=== PATIENT | male | born 1970 | race Caucasian/White ===

== ENCOUNTER 2018-01-02 08:49 | Emergency (ER) | payer MEDICARE ==
[~2018-01-02] VITALS: Ht 177.8 cm; Wt 85.3 kg
[~2018-01-02 08:49] MED LIST: AMLO10TA2 PO; LISI1TAB11 PO; METO25TA6 PO
--- NOTE | 2018-01-02 08:55 | NUR ---
AAOX3, CAME TO ER C/O constipation x 2 days Takes oxycontin 5 mg PO as needed. RR IS EVEN AND UNLABORED WITH NAD NOTED. SKIN IS WARM AND NON DIAPHORETIC. AWAITING MD FOR EVAL.
[2018-01-02] MEDS ORDERED: MINERAL OIL 133 ML (PYXIS) 1 EA ENEMA RC ONE ×2 (09:11→09:30)
--- NOTE | 2018-01-02 09:20 | NUR ---
PATIENT IN THE RESTROOM AT THIS MOMENT.
[2018-01-02] MEDS ORDERED: NA PHOS,M-B/NA PHOS,DI-BA 1 EA ENEMA RC ONE ×2 (09:30→10:25)
--- NOTE | 2018-01-02 10:50 | NUR ---
Patient is resting comfortably in bed with eyes closed. Easily aroused. VSS
--- NOTE | 2018-01-02 11:16 | NUR ---
Patient discharged to home in stable condition. Written and verbal after care instructions given. Patient verbalizes understanding of instruction.
[2018-01-02 11:19] VITALS: BP 128/79
== END 2018-01-02 11:21 | disposition home or self-care (01) ==
LOC: ER 08:52
DX: K59.00 Constipation, unspecified (principal); K62.89 Other specified diseases of anus and rectum; G89.29 Other chronic pain; M54.40 Lumbago with sciatica, unspecified side; F10.10 Alcohol abuse, uncomplicated; I10 Essential (primary) hypertension; Y90.9 Presence of alcohol in blood, level not specified
CPT/HCPCS: 99283; A4606; Z7610

== ENCOUNTER 2019-02-02 19:35 | Emergency (ER) | payer MEDICARE ==
[~2019-02-02] VITALS: Ht 175.3 cm; Wt 82.6 kg
[~2019-02-02 19:35] MED LIST changes: -AMLO10TA2 PO; +AMLO10TA7 PO; -LISI1TAB11 PO; +LISI1TAB27 PO
--- NOTE | 2019-02-02 19:46 | NUR ---
[id number] C/C HIGH BLOOD PRESSURE, SBP 160S PER EMS, SBP 140S NOW. PT TOOK HTN MED AT 7PM. HX OF ANEURYSM. STATES MED WAS CHANGED BY PRIMARY 3 WEEKS AGO, AND THAT HTN MAKING HIM NERVOUS DUE TO ANEURYSM. NO ACUTE DISTRESS NOTED. DENIES SOB, DIZZINESS, WEAKNESS, N/V. ON MONITOR AND READY FOR EVAL.
[2019-02-02 20:38] LABS: BASOPHILS % (AUTO) 0.5 % (0.0-2.0); EOSINOPHILS % (AUTO) 0.1 % (0.0-6.0); HEMATOCRIT 44 % (39-51); HEMOGLOBIN 15.4 g/dL (13.5-17.5); LYMPHOCYTES # (AUTO) 0.8 /CMM (0.8-4.8); LYMPHOCYTES % (AUTO) 9.9 % (20.0-44.0); MEAN CORPUSCULAR HGB CONC 35 g/dl (31.0-36.0); MEAN CORPUSCULAR VOLUME 91 fL (80-96); MONOCYTES # (AUTO) 0.4 /CMM (0.1-1.30); MONOCYTES % (AUTO) 4.9 % (2.0-12.0); NEUTROPHILS # (AUTO) 6.5 /CMM (1.8-8.9); NEUTROPHILS % (AUTO) 84.6 % (43.0-81.0); PLATELET COUNT (AUTO) 182 /CMM (150-450); RED BLOOD CELL COUNT(AUTO) 4.82 MIL/uL (4.5-6.0); WHITE BLOOD COUNT (AUTO) 7.7 K/uL (4.3-11.0)
[2019-02-02 20:45] LABS: CALCIUM, SERUM 9.4 mg/dL (8.5-10.1); CREATININE 0.8 mg/dL (0.6-1.3); POTASSIUM 4.1 mmol/L (3.5-5.1)
[2019-02-02 21:54] VITALS: BP 122/73
--- NOTE | 2019-02-02 21:54 | NUR ---
Patient discharged to home in stable condition. Written and verbal after care instructions given. Patient verbalizes understanding of instruction.
== END 2019-02-02 21:45 | disposition home or self-care (01) ==
LOC: ER 19:39
DX: I10 Essential (primary) hypertension (principal); G89.29 Other chronic pain; Z98.890 Other specified postprocedural states; Z79.899 Other long term (current) drug therapy
CPT/HCPCS: 36415; 80048-TC; 85025-TC